=== PATIENT | female | born 1990 | race Caucasian/White ===

== ENCOUNTER 2022-10-30 08:10 | Outpatient (CLI) | payer BC, SELFPAY | END 2022-10-30 08:11 | disposition home or self-care (01) | LOC: NFLDREF 14:32 | DX: N97.0 Female infertility associated with anovulation (principal); E66.9 Obesity, unspecified; M33.90 Dermatopolymyositis, unspecified, organ involvement unspecified; Z13.0 Encounter for screening for diseases of the blood and blood-forming organs and certain disorders involving the immune mechanism | CPT/HCPCS: 80061; 84270; 84402; 84403; 84443; 86039 ==

== ENCOUNTER 2023-10-23 07:39 | Outpatient (CLI) | payer BC, SELFPAY | END 2023-10-23 07:40 | disposition home or self-care (01) | LOC: NFLDREF 10-24 11:16 | PROVIDERS: Visit Provider Obstetrics & Gynecology | DX: E66.9 Obesity, unspecified (principal); F32.A Depression, unspecified; F41.9 Anxiety disorder, unspecified; N89.8 Other specified noninflammatory disorders of vagina; R04.0 Epistaxis; Z13.6 Encounter for screening for cardiovascular disorders | CPT/HCPCS: 80061; 84443; 85384; 85610; 87086 ==

== ENCOUNTER 2023-11-19 07:40 | Outpatient (CLI) | payer BC, SELFPAY | END 2023-11-19 07:41 | disposition home or self-care (01) | LOC: NFLDREF 11-20 08:19 | PROVIDERS: Visit Provider Obstetrics & Gynecology | DX: N89.8 Other specified noninflammatory disorders of vagina (principal); R04.0 Epistaxis | CPT/HCPCS: 85384; 87086 ==

== ENCOUNTER 2024-10-27 09:25 | Outpatient (CLI) | payer BC, SELFPAY ==
[2024-10-29 04:35] LABS: HPV Source Cervical; HPV, High Risk by TMA Not Detected
== END 2024-10-27 09:26 | disposition home or self-care (01) ==
PROVIDERS: Visit Provider Obstetrics & Gynecology
DX: R82.90 Unspecified abnormal findings in urine (principal); Z12.4 Encounter for screening for malignant neoplasm of cervix; Z11.51 Encounter for screening for human papillomavirus (HPV); Z13.29 Encounter for screening for other suspected endocrine disorder; Z13.228 Encounter for screening for other metabolic disorders; Z13.220 Encounter for screening for lipoid disorders
CPT/HCPCS: 80053; 80061; 84443; 87086; 87624; 87625; 88141; 88142

== ENCOUNTER 2025-02-04 07:43 | Outpatient (CLI) | payer BC, SELFPAY | END 2025-02-04 07:44 | disposition home or self-care (01) | LOC: NFLDREF 02-07 15:48 | PROVIDERS: PCP Family Medicine; Visit Provider Family Medicine | DX: E78.5 Hyperlipidemia, unspecified (principal); R79.89 Other specified abnormal findings of blood chemistry | CPT/HCPCS: 80053; 80061 ==

== ENCOUNTER 2025-05-09 07:52 | Outpatient (CLI) | payer BC, SELFPAY | END 2025-05-09 07:53 | disposition home or self-care (01) | LOC: NFLDREF 18:50 | PROVIDERS: PCP Family Medicine; Referring Provider Family Medicine; Visit Provider Family Medicine | DX: R74.8 Abnormal levels of other serum enzymes (principal); E78.5 Hyperlipidemia, unspecified | CPT/HCPCS: 80053; 80061 ==